=== PATIENT | female | born 1955 | race Two or more races ===

== ENCOUNTER 2022-09-22 12:24 | Outpatient (CLI) | payer OTHER | END 2022-09-22 12:35 | disposition home or self-care (01) | LOC: MRI 12:24 | PROVIDERS: ATTEND Orthopaedic Surgery | DX: M25.561 Pain in right knee (principal); M25.562 Pain in left knee; M25.551 Pain in right hip; M25.552 Pain in left hip | CPT/HCPCS: 73721 ==